=== PATIENT | female | born 2000 | race Caucasian/White ===

== ENCOUNTER 2024-11-27 18:30 | Emergency (ER) | payer SELFPAY ==
[~2024-11-27] VITALS: Ht 157.5 cm; Wt 63.9 kg
[~2024-11-27 18:30] MED LIST: BACT800T5 PO
[2024-11-27] MEDS: IBUPROFEN 600 MG TAB PO ONE (20:43)
[2024-11-27] MEDS ORDERED: IBUP-1022 PO (21:20)
[2024-11-27 21:56] VITALS: BP 100/60; TEMP 96.2; O2SAT 99
== END 2024-11-27 21:57 | disposition home or self-care (01) ==
LOC: M ED 18:30
DX: R51.9 Headache, unspecified (principal); B34.9 Viral infection, unspecified; F17.290 Nicotine dependence, other tobacco product, uncomplicated; Z88.0 Allergy status to penicillin; Z88.1 Allergy status to other antibiotic agents; Z91.018 Allergy to other foods; Z91.041 Radiographic dye allergy status; Z79.1 Long term (current) use of non-steroidal anti-inflammatories (NSAID)

== ENCOUNTER 2025-01-24 20:02 | Emergency (ER) | payer MEDICAID, SELFPAY ==
[~2025-01-24] VITALS: Ht 157.5 cm; Wt 63.6 kg
[~2025-01-24 20:02] MED LIST changes: +IBUP600T42 PO
[2025-01-25] MEDS: CETIRIZINE 10 MG TAB PO ONE (00:50)
[2025-01-25] MEDS ORDERED: CETI-24 PO (01:00)
[2025-01-25 01:18] VITALS: BP 106/58; TEMP 98; O2SAT 97
== END 2025-01-25 01:19 | disposition home or self-care (01) ==
LOC: M ED 20:02
DX: H01.114 Allergic dermatitis of left upper eyelid (principal); Z88.0 Allergy status to penicillin; Z88.1 Allergy status to other antibiotic agents; Z91.018 Allergy to other foods; Z91.041 Radiographic dye allergy status; Z79.1 Long term (current) use of non-steroidal anti-inflammatories (NSAID); Z79.899 Other long term (current) drug therapy